=== PATIENT | male | born 1985 | race Caucasian/White ===

== ENCOUNTER 2017-12-25 20:56 | Emergency (ER) | payer BC ==
[2017-12-25] MEDS ORDERED: ONDANSETRON HCL IV 4 MG/2 ML VIAL IVP ONE (21:11)
[2017-12-25] MEDS ORDERED: 0.9 % SODIUM CHLORIDE 1000ML 1,000 ML IV ONE (21:11)
--- NOTE | 2017-12-25 21:16 | Emergency Department Record ---
History of Present Illness - General Chief complaint: ENT Stated complaint: DX STREEP, JUST NOT FEELING RIGHT SINCE TAKING MED Time Seen by Provider: 12/25/17 21:01 Source: Patient Mode of Arrival: Ambulatory Limitations: No limitations - History of Present Illness Initial comments: 32 yo male presents with multiple concerns. He was recently diagnosed with strep throat. He partially completed his course of antibiotics. He has not felt well since then. He has had some nausea, vomiting, diarrhea, and weakness. He feels dehydrated at this time. NO blood in the vomit or diarrhea. His throat discomfort is much improved. He works third shift [id number] and does not feel able to go in at this time. MD complaint: Sore throat -: Days(s) Severity: Moderate Consistency: Constant Improves with: Rest Worsens with: Eating, Other (The patient admits to chronic alcohol abuse. He states he continues to abuse alcohol. He does not want AA at this time. He is working with his PCP for his chronic misuse of alcohol.) Context- Ear: Recent illness Associated Symptoms: Sore throat - Related Data Home Medications Medication Instructions Recorded Confirmed Last Taken Gabapentin [Neurontin] 300 mg PO TID 12/25/17 12/25/17 Unknown Metoprolol Succinate [Toprol Xl] 50 mg PO DAILY 12/25/17 12/25/17 Unknown Sertraline HCl [Zoloft] 50 mg PO QHS 12/25/17 12/25/17 Unknown Trazodone HCl [Desyrel] 25 mg PO QHS 12/25/17 12/25/17 Unknown Previous Rx's Medication Instructions Recorded Ondansetron [Zofran Odt] 4 mg PO Q8H #15 tab.rapdis 12/25/17 Allergies Allergy/AdvReac Type Severity Reaction Status Date / Time No Known Drug Allergies Allergy Verified 12/25/17 21:10 Review of Systems Constitutional: Reports: Malaise, Weakness. Denies: Chills, Fever Eyes: Denies: Eye discharge, Eye pain ENT: Denies: Congestion, Throat pain Respiratory: Denies: Cough, Dyspnea, Hemoptysis, Stridor, Wheezes Cardiovascular: Denies: Chest pain, Palpitations, Syncope Endocrine: Reports: Fatigue Gastrointestinal: Reports: Diarrhea, Nausea, Vomiting. Denies: Abdominal pain, Constipation, Hematemesis, Hematochezia, Melena Genitourinary: Denies: Dysuria, Frequency, Hematuria Musculoskeletal: Denies: Arthralgia, Back pain, Joint swelling, Myalgia, Neck pain Skin: Denies: Bruising, Change in color, Rash Neurological: Denies: Headache, Numbness, Weakness Psychiatric: Denies: Anxiety Hematological/Lymphatic: Denies: Blood Clots, Easy bleeding, Easy bruising, Swollen glands Physical Exam - General General Appearance: Alert, Oriented x3, Cooperative, No acute distress Limitations: No limitations - Head Head exam: Normal inspection - Eye Eye exam: Normal appearance. negative: Conjunctival injection, Periorbital swelling, Scleral icterus - ENT ENT exam: Normal exam, Mucous membranes moist, Normal orophraynx. negative: Mucous membranes dry Ear exam: Normal external inspection Nasal Exam: Normal inspection. negative: Discharge Mouth exam: Normal external inspection Teeth exam: Normal inspection Throat exam: Normal inspection, Tonsillar erythema, Tonsillomegaly, Tonsillar exudate, R peritonsillar mass, L peritonsillar mass - Neck Neck exam: Normal inspection, Full ROM. negative: Lymphadenopathy, Tenderness - Respiratory Respiratory exam: Normal lung sounds bilaterally. negative: Accessory muscle use, Prolonged expiratory, Respiratory distress, Rhonchi, Stridor, Wheezes - Cardiovascular Cardiovascular Exam: Regular rate, Normal rhythm, Normal heart sounds - GI/Abdominal GI/Abdominal exam: Soft. negative: Tenderness - Rectal Rectal exam: Deferred - exam: Deferred - Extremities Extremities exam: Normal inspection, Full ROM, Normal capillary refill. negative: Pedal edema, Tenderness - Back Back exam: Reports: Normal inspection, Full ROM. Denies: Muscle spasm, Rash noted, Tenderness - Neurological Neurological exam: Alert, Oriented X3 - Psychiatric Psychiatric exam: Normal affect, Normal mood - Skin Skin exam: Dry, Intact, Normal color, Warm Course Vital Signs 12/25/17 21:04 Temperature 98.6 F Pulse Rate [ 98 H Pulse Ox Probe] Blood Pressure 160/110 [Left Arm] Pulse Ox 96 - Reevaluation(s) Reevaluation #1: The labs were reviewed The patient was informed of the elevated AST and ALT that are in a pattern consistent with alcohol abuse The INR is normal The glucose is 210 The patient reports he is feeling much better after the fluids. 12/25/17 22:13 12/25/17 22:30 We discussed the results and very close follow up with his PCP. He has an appointment on Monday. We discussed reasons to return to the ED prior to seeing his PCP He feels like he has support until then Medical Decision Making - Lab Data Result diagrams: 12/25/17 21:24 12/25/17 21:24 Disposition Disposition: Discharge Clinical Impression: Alcohol abuse Nausea and vomiting Qualifiers: Vomiting Intractability: unspecified Disposition: Home, Self-Care Condition: (1) Good Instructions: At-Risk Alcohol Use (ED), Acute Nausea and Vomiting (ED) Additional Instructions: Follow up with your doctor this week as scheduled on Monday Return to the ER if worse, vomiting or any concerns Avoid excessive alcohol You will need your liver and blood sugar tests recheck with your doctor Prescriptions: Ondansetron [Zofran Odt] 4 mg PO Q8H #15 tab.rapdis Forms: Patient Portal Access Time of Disposition: 22:31 Quality - Quality Measures Quality Measures: N/A - Blood Pressure Screening Does Patient Have Any of the Following: No Blood Pressure Classification: Hypertensive Reading Systolic Measurement: 164 Diastolic Measurement: 105 Screening for High Blood Pressure: < Pre-Hypertensive BP, F/U Documented > [ G8950] Pre-Hypertensive Follow-up Interventions: Referral to alternative/primary care provider.
[2017-12-25] MEDS ORDERED: MVI, ADULT NO.4 WITH VIT K 10 ML, THIAMINE HCL IV 100 MG in 0.9 % SODIUM CHLORIDE 1000M... IV SCH ×3 (21:30)
[2017-12-25 21:31] LABS: BASO % 1.3 % (0-6); GRAN % 58.6 % (47-80); HEMOGLOBIN 14.4 gm/dl (14.0-18.0); LYMPH % 22.4 % (16-45); MEAN CELL VOLUME 89.9 fl (81-97); MEAN CORPUSCULAR HEMOGLOBIN 31.6 pg (27-33); MEAN CORPUSCULAR HGB CONC 35.1 g/dl (32-36); MONO % 13.7 % (0-9); PLATELET COUNT 100 K/uL (130-400); RED BLOOD COUNT 4.56 M/uL (4.40-5.70); RED CELL DISTRIBUTION WIDTH 15.2 % (11.5-14.5); WHITE BLOOD COUNT W/O DIFF 4.5 K/uL (4.2-12.2)
[2017-12-25 21:42] LABS: BLOOD UREA NITROGEN 11 mg/dL (6-20); CREATININE 0.5 mg/dL (0.7-1.2); EST GLOMERULAR FILTRATION RATE > 60 mL/min
[2017-12-25 21:43] LABS: TOTAL PROTEIN 7.5 g/dL (6.6-8.7)
[2017-12-25 21:45] LABS: GLUCOSE,RANDOM 210 mg/dL (74-109)
[2017-12-25 21:48] LABS: ALBUMIN 4.6 g/dL (4.0-5.0); ALKALINE PHOSPHATASE 87 U/L (40-129); ALT/SGPT 252 U/L (<41); AST/SGOT 494 U/L (10.0-50.0); BILIRUBIN,DIRECT 0.3 mg/dL (0-0.3)
[2017-12-25 21:58] LABS: THYROID STIMULATING HORMONE 2.91 uIU/mL (0.270-4.20)
[2017-12-25 22:00] LABS: INR 0.9; PARTIAL THROMBOPLASTIN TIME 24.3 SECONDS (24.5-39.1); PROTHROMBIN TIME (PATIENT) 9.7 SECONDS (9.5-12.1)
[2017-12-25] MEDS ORDERED: ONDANSETRON 4 MG ODT TABLET SL ONE (22:35)
== END 2017-12-25 22:41 | disposition home or self-care (01) ==
LOC: ER 20:56
DX: F10.20 Alcohol dependence, uncomplicated (principal); R11.2 Nausea with vomiting, unspecified; J02.9 Acute pharyngitis, unspecified
CPT/HCPCS: 99284 ×2; 96374; 96375; 85025; 85730; 85610; 80076; 80048; 84443; J2405; J3411; J7030

== ENCOUNTER 2019-01-15 13:27 | Emergency (ER) | payer MEDICAID ==
[2019-01-15] MEDS ORDERED: SOD CHLOR 0.9% WITH KCL 40MEQ 40 MEQ/1,000 ML IV.SOLN IV ONE (13:32)
[2019-01-15] MEDS ORDERED: POTASSIUM CHLORIDE 20 MEQ TABLET PO ONE ×2 (13:32→17:45)
--- NOTE | 2019-01-15 13:37 | Emergency Department Record ---
History of Present Illness - General Chief Complaint: General Stated Complaint: LOW POTASSIUM Time Seen by Provider: 01/15/19 13:32 Source: Patient Mode of Arrival: Ambulatory Limitations: No limitations - History of Present Illness Initial comments: 33 yo male presents due outpatient labs that were preformed today demonstrated a K of 2.4. Dai Kumar ELECT[employer] ENGINEERING TECH[employer]OLOGIST called the patient and the ED directed the patient to the ED. The patient saw his PCP yesterday for cramps in his hands and feet. No palpitations or syncope. He has not had any return of the symptoms today. He admits to alcohol abuse that is treated by his doctor. He does not feel like he is in withdrawal at this moment. -: Days(s) (1) Location: Left, Right, Upper extremity, Lower extremity Quality: Other (cramps) Consistency: Now resolved Improves with: None Worsens with: None Associated Symptoms: Denies other symptoms - [place] Coma Scale Eye Response: (4) Open spontaneously Motor Response: (6) Obeys commands Verbal Response: (5) Oriented [place] Total: 15 - Related Data Previous Rx's Medication Instructions Recorded Ondansetron [Zofran Odt] 4 mg PO Q8H #15 tab.rapdis 12/25/17 Potassium Chloride [Klor-Con M20] 20 meq PO DAILY #5 tab.er.prt 01/15/19 Allergies Allergy/AdvReac Type Severity Reaction Status Date / Time No Known Drug Allergies Allergy Verified 12/25/17 21:10 Review of Systems Constitutional: Denies: Chills, Fever, Malaise, Weakness Eyes: Denies: Eye discharge, Eye pain, Photophobia, Vision change ENT: Denies: Congestion, Throat pain Respiratory: Denies: Cough, Dyspnea, Hemoptysis, Stridor, Wheezes Cardiovascular: Denies: Chest pain, Palpitations, Syncope Endocrine: Denies: Fatigue Gastrointestinal: Reports: Nausea, Vomiting. Denies: Abdominal pain, Constipation, Diarrhea Genitourinary: Denies: Dysuria, Frequency Musculoskeletal: Reports: Myalgia. Denies: Arthralgia, Back pain, Neck pain Skin: Denies: Bruising, Change in color, Rash Neurological: Denies: Abnormal gait, Headache, Numbness, Tingling, Tremors, Vertigo, Weakness Psychiatric: Reports: Anxiety Hematological/Lymphatic: Denies: Easy bleeding, Easy bruising Past Medical History - SOCIAL HISTORY Smoking Status: Current every day smoker Drug Use: None - RESPIRATORY Hx Respiratory Disorders: No - CARDIOVASCULAR Hx Cardio Disorders: Yes Hx Hypertension: Yes Hx Irregular Heartbeat: Yes - NEURO Hx Neuro Disorders: Yes Hx Seizures: Yes (r/t alcohol withdrawl) - GI Hx GI Disorders: No - Hx Genitourinary Disorders: No - ENDOCRINE Hx Endocrine Disorders: No - MUSCULOSKELETAL Hx Musculoskeletal Disorders: No - PSYCH Hx Psych Problems: Yes Hx Anxiety: Yes Hx Depression: Yes Comment:: alcholism - HEMATOLOGY/ONCOLOGY Hx Hematology/Oncology Disorders: No Family Medical History Hx Alcohol Use: Father Hx Cancer: Mother Physical Exam - General General Appearance: Alert, Oriented x3, Cooperative, No acute distress Limitations: No limitations - Head Head exam: Atraumatic, Normocephalic, Normal inspection - Eye Eye exam: Normal appearance, PERRL. negative: Conjunctival injection, Scleral icterus - ENT ENT exam: Normal exam, Mucous membranes moist Ear exam: Normal external inspection Nasal Exam: Normal inspection Mouth exam: Normal external inspection Teeth exam: Normal inspection Throat exam: Normal inspection - Neck Neck exam: Normal inspection - Respiratory Respiratory exam: Normal lung sounds bilaterally. negative: Respiratory distress - Cardiovascular Cardiovascular Exam: Regular rate, Normal rhythm, Normal heart sounds Peripheral Pulses: 2+: Radial (R), Radial (L) - GI/Abdominal GI/Abdominal exam: Soft. negative: Tenderness - Rectal Rectal exam: Deferred - exam: Deferred - Extremities Extremities exam: Normal inspection, Full ROM, Normal capillary refill. negative: Calf tenderness, Joint swelling, Pedal edema, Tenderness - Back Back exam: Denies: CVA tenderness (R), CVA tenderness (L) - Neurological Neurological exam: Alert, Oriented X3 - Psychiatric Psychiatric exam: Normal affect, Normal mood. negative: Agitated, Anxious - Skin Skin exam: Dry, Intact, Normal color, Warm Course - Reevaluation(s) Reevaluation #1: The labs were reviewed The K is 2.6 The magnesium is 1.7 NSR on the monitor without ectopy 01/15/19 14:25 01/15/19 15:04 The patient is relaxed without complaints He does not feel like he is in withdrawal. He has support through his PCP for the alcohol abuse and anxiety He declined the need for any medication for w/d at this time 01/15/19 15:59 The patient is doing well. No complaints. He ate lunch. HR 75. BP 134/83 IV infusing. 01/15/19 17:44 The K has improved to 3.3 We discussed K rich food sources and I will have him take one more dose tonight He is to call his PCP to recheck his labs in 1-2 days and sooner if any cramps Medical Decision Making - Lab Data Result diagrams: 01/15/19 13:40 01/15/19 17:20 Disposition Disposition: Discharge Clinical Impression: Hypokalemia Disposition: Home, Self-Care Condition: (1) Good Instructions: Hypokalemia (ED) Additional Instructions: Call your doctor for the next available follow up appointment to recheck your labs this week Eat potassium rich foods like we discussed in the ER Return to the ER for a recheck if worse, any new concerns or questions Take the potassium prior to bedtime tonight Take a dose in the morning of the potassium until your doctor rechecks your labs Review this ER visit and the tests performed with your family doctor Prescriptions: Potassium Chloride [Klor-Con M20] 20 meq PO DAILY #5 tab.er.prt Forms: Patient Portal Access Time of Disposition: 17:46 Quality - Quality Measures Quality Measures: N/A - Blood Pressure Screening Does Patient Have Any of the Following: No Blood Pressure Classification: Pre-Hypertensive BP Reading Systolic Measurement: 126 Diastolic Measurement: 67 Screening for High Blood Pressure: < Pre-Hypertensive BP, F/U Documented > [ G8950] Pre-Hypertensive Follow-up Interventions: Referral to alternative/primary care provider.
[2019-01-15 13:45] LABS: BASO % 0.3 % (0-6); EOS % 0.8 % (0-6); GRAN % 73.6 % (47-80); HEMATOCRIT 37.9 % (42.0-52.0); HEMOGLOBIN 13.4 gm/dl (14.0-18.0); MEAN CELL VOLUME 91.1 fl (81-97); MEAN CORPUSCULAR HEMOGLOBIN 32.2 pg (27-33); MEAN CORPUSCULAR HGB CONC 35.4 g/dl (32-36); MEAN PLATELET VOLUME 12.1 fl (7.4-10.4); MONO % 14.3 % (0-9); PLATELET COUNT 95 K/uL (130-400); RED BLOOD COUNT 4.16 M/uL (4.40-5.70); RED CELL DISTRIBUTION WIDTH 12.8 % (11.5-14.5); WHITE BLOOD COUNT W/O DIFF 9.3 K/uL (4.2-12.2)
[2019-01-15 13:57] LABS: BLOOD UREA NITROGEN 18 mg/dL (6-20); CREATININE 0.9 mg/dL (0.7-1.2); EST GLOMERULAR FILTRATION RATE > 60 mL/min
[2019-01-15 14:00] LABS: GLUCOSE,RANDOM 92 mg/dL (74-109)
[2019-01-15] MEDS ORDERED: MAGNESIUM OXIDE 400 MG TABLET PO ONE (14:24)
[2019-01-15 17:36] LABS: BLOOD UREA NITROGEN 15 mg/dL (6-20); CREATININE 0.8 mg/dL (0.7-1.2); EST GLOMERULAR FILTRATION RATE > 60 mL/min
[2019-01-15 17:39] LABS: GLUCOSE,RANDOM 128 mg/dL (74-109)
== END 2019-01-15 18:01 | disposition home or self-care (01) ==
LOC: ER 13:27
DX: E87.6 Hypokalemia (principal); R25.2 Cramp and spasm; I10 Essential (primary) hypertension; F17.210 Nicotine dependence, cigarettes, uncomplicated; F10.10 Alcohol abuse, uncomplicated
CPT/HCPCS: 80048; 83735; 85025; 96365; 96366; 99284

== ENCOUNTER 2019-02-18 16:01 | Observation (INO) | payer MEDICAID ==
[2019-02-18] MEDS ORDERED: LORAZEPAM 2 MG/ML VIAL IV ONE ×2 (16:37→17:18)
[2019-02-18 16:46] LABS: ABSOLUTE NEUTROPHIL COUNT 3.17; BASO % 1.3 % (0-6); EOS % 0.9 % (0-6); GRAN % 67.5 % (47-80); HEMATOCRIT 38.4 % (42.0-52.0); LYMPH % 17.7 % (16-45); MEAN CELL VOLUME 95.3 fl (81-97); MEAN CORPUSCULAR HGB CONC 33.9 g/dl (32-36); MONO % 12.6 % (0-9); PLATELET COUNT 75 K/uL (130-400); RED BLOOD COUNT 4.03 M/uL (4.40-5.70); RED CELL DISTRIBUTION WIDTH 13.2 % (11.5-14.5); WHITE BLOOD COUNT W/O DIFF 4.7 K/uL (4.2-12.2)
[2019-02-18 16:47] LABS: MEAN CORPUSCULAR HEMOGLOBIN 32.2 pg (27-33)
--- NOTE | 2019-02-18 16:50 | Emergency Department Record ---
History of Present Illness - General Chief Complaint: Tremor Stated Complaint: BELIEVES LOW POTASSIUM Time Seen by Provider: 02/18/19 16:33 Source: Patient, Family Mode of Arrival: Ambulatory Limitations: No limitations - History of Present Illness Initial comments: The patient is here due to a 2 hour hx of tremors and shaking of his arms and legs. He did stop drinking 3 days ago and believes he is in alcohol withdrawal. The patient also feels his potassium may be low due to having similar symptoms due to that issue in the past. The patient is a heavy drinker and has been drinking about a fifth of alcohol a day for the last 4 months. He denies any CP, SOB, AP or CORDOVA. The patient did vomit once this AM. Onset/Timin -: Hour(s) - [place] Coma Scale Eye Response: (4) Open spontaneously Motor Response: (6) Obeys commands Verbal Response: (5) Oriented [place] Total: 15 - Related Data Allergies Allergy/AdvReac Type Severity Reaction Status Date / Time No Known Drug Allergies Allergy Verified 12/25/17 21:10 Travel Screening - Travel/Exposure Within Last 30 Days Have you traveled within the last 30 days?: No Review of Systems Constitutional: Denies: Chills, Fever Eyes: Denies: Eye discharge ENT: Denies: Congestion Respiratory: Denies: Cough, Dyspnea Cardiovascular: Denies: Arrhythmia, Chest pain Endocrine: Denies: Fatigue Gastrointestinal: Denies: Nausea Genitourinary: Denies: Dysuria Musculoskeletal: Denies: Arthralgia Skin: Denies: Bruising Past Medical History - SOCIAL HISTORY Smoking Status: Current every day smoker Alcohol Use: Heavy Alcohol Use Comment: fifth per day Drug Use: None - RESPIRATORY Hx Respiratory Disorders: No - CARDIOVASCULAR Hx Cardio Disorders: Yes Hx Hypertension: Yes Hx Irregular Heartbeat: Yes (tachycardia) - NEURO Hx Neuro Disorders: Yes Hx Seizures: Yes (r/t alcohol withdrawl) - GI Hx GI Disorders: Yes Hx Liver Disease: Yes - Hx Genitourinary Disorders: No - ENDOCRINE Hx Endocrine Disorders: No - MUSCULOSKELETAL Hx Musculoskeletal Disorders: No - PSYCH Hx Psych Problems: Yes Hx Anxiety: Yes Hx Depression: Yes Comment:: alcholism - HEMATOLOGY/ONCOLOGY Hx Hematology/Oncology Disorders: No Family Medical History Any Significant Family History?: Yes Hx Alcohol Use: Father Hx Cancer: Mother Physical Exam - General General Appearance: Alert, Oriented x3, Cooperative, No acute distress - Head Head exam: Atraumatic, Normocephalic, Normal inspection - Eye Eye exam: Normal appearance, PERRL, EOMI - ENT Throat exam: Normal inspection. negative: Tonsillar erythema, Tonsillar exudate - Neck Neck exam: Normal inspection, Full ROM. negative: Tenderness - Respiratory Respiratory exam: Normal lung sounds bilaterally. negative: Respiratory distress - Cardiovascular Cardiovascular Exam: Regular rate, Normal rhythm, Normal heart sounds - GI/Abdominal GI/Abdominal exam: Soft, Normal bowel sounds. negative: Tenderness - Extremities Extremities exam: Normal inspection, Full ROM, Normal capillary refill. negative: Tenderness - Neurological Neurological exam: Alert, Normal gait, Other (The patient does have tremors to his arms bilaterally.). negative: Abnormal gait, Motor sensory deficit Course Vital Signs 02/18/19 02/18/19 16:19 16:28 Temperature 98.7 F Pulse Rate 90 Respiratory 20 Rate Blood Pressure 116/106 Pulse Ox 97 - Reevaluation(s) Reevaluation #1: I did discuss the issues with the patient and did recommend inpatient treatment due to the extent of his tremors, vomiting, and withdrawal and the patient did agree. I then did discuss the case with Gregoria Bautista (AD OPERATIONS INTERN) and she does accept the admission for Dr. Calvin. 02/18/19 17:33 Medical Decision Making - Data Complexity MDM Data: Labs Ordered and/or Reviewed, EKG Ordered and/or Reviewed - Lab Data Result diagrams: 02/18/19 16:15 02/18/19 16:15 Lab Results 02/18/19 Range/Units 16:15 WBC 4.7 (4.2-12.2) K/uL RBC 4.03 L (4.40-5.70) M/uL Hgb 13.0 L (14.0-18.0) gm/dl Hct 38.4 L (42.0-52.0) % MCV 95.3 (81-97) fl MCH 32.2 (27-33) pg MCHC 33.9 (32-36) g/dl RDW 13.2 (11.5-14.5) % Plt Count 75 L (130-400) K/uL MPV 12.0 H (7.4-10.4) fl Gran % 67.5 (47-80) % Lymphocytes % 17.7 (16-45) % Monocytes % 12.6 H (0-9) % Eosinophils % 0.9 (0-6) % Basophils % 1.3 (0-6) % Absolute Neutrophils 3.17 - EKG Data -: EKG Interpreted by Me EKG: Abnormal EKG (LVH with repolarization abnormalities.) Disposition Disposition: Admit Clinical Impression: Alcohol withdrawal Qualifiers: Complication of substance-induced condition: uncomplicated Qualified Code(s): F10.230 - Alcohol dependence with withdrawal, uncomplicated Disposition: Still a Patient at [facility] Decision to Admit: Admit from ER Decision to Admit Date: 02/18/19 Decision to Admit Time: 17:34 Accepting Physician: Andreia Time Discussed w/Accepting Physician: 17:34 Condition: (2) Stable Forms: Patient Portal Access Time of Disposition: 17:34 Quality - Quality Measures Quality Measures: N/A - Blood Pressure Screening View Details: Yes Does Patient Have Any of the Following: No Blood Pressure Classification: Hypertensive Reading Systolic Measurement: 116 Diastolic Measurement: 106 Screening for High Blood Pressure: < First Hypertensive BP, F/U Documented > [G8950] First Hypertensive Follow-up Interventions: Referral to alternative/primary care provider.
[2019-02-18 16:58] LABS: BLOOD UREA NITROGEN 5 mg/dL (6-20); CREATININE 0.6 mg/dL (0.7-1.2); EST GLOMERULAR FILTRATION RATE > 60 mL/min
[2019-02-18 17:01] LABS: GLUCOSE,RANDOM 117 mg/dL (74-109); PARTIAL THROMBOPLASTIN TIME 22.4 SECONDS (24.5-39.1); PROTHROMBIN TIME (PATIENT) 10.5 SECONDS (9.5-12.1)
[2019-02-18 17:03] LABS: ALB/GLOB RATIO 1.8 (1.1-1.8); ALBUMIN 5.1 g/dL (4.0-5.0); ALKALINE PHOSPHATASE 104 U/L (40-129); ALT/SGPT 217 U/L (<41); AST/SGOT 508 U/L (10.0-50.0); CREATINE PHOSPHOKINASE 194 U/L (39-308)
[2019-02-18 17:06] LABS: CKMB 1.5 ng/mL (<6.73)
[2019-02-18 17:14] LABS: THYROID STIMULATING HORMONE 2.88 uIU/mL (0.270-4.20)
[2019-02-18] MEDS ORDERED: POTASSIUM CHLORIDE 20 MEQ TABLET PO ONE (17:22)
[2019-02-18] MEDS ORDERED: 0.9 % SODIUM CHLORIDE 1,000 ML BAG IV ONE (17:26)
[2019-02-18] MEDS: MVI, ADULT NO.4 WITH VIT K 10 ML, THIAMINE HCL IV 100 MG in 0.9 % SODIUM CHLORIDE 1000M... IV SCH ×6 (17:33→21:31)
[2019-02-18] MEDS ORDERED: LORAZEPAM 2 MG/ML VIAL IV PRN ×4 (18:15→21:16)
[2019-02-18] MEDS ORDERED: 0.9 % SODIUM CHLORIDE 1000ML 1,000 ML IV PRN (18:15)
[2019-02-18] MEDS ORDERED: ONDANSETRON HCL IV 4 MG/2 ML VIAL IVP PRN (18:15)
[2019-02-18] MEDS ORDERED: LORAZEPAM 2 MG/ML VIAL IM PRN (20:57)
[2019-02-18] MEDS ORDERED: DIAZEPAM 5 MG TABLET PO PRN (20:57)
[2019-02-18] MEDS: CHLORDIAZEPOXIDE 25 MG CAPSULE PO SCH (21:32)
[2019-02-18] MEDS: POTASSIUM CHL 20MEQ IN 1L NS 20 MEQ/1,000 ML BAG IV SCH (21:33)
[2019-02-18] MEDS: THIAMINE MONONITRATE 100 MG TABLET PO SCH (21:38)
[2019-02-18] MEDS ORDERED: MAGNESIUM SULFATE 16 MEQ in 0.9 % SODIUM CHLORIDE 100ML 100 ML IV ONE ×2 (21:43→22:00)
[2019-02-19] MEDS ORDERED: MAGNESIUM SULFATE 16 MEQ in 0.9 % SODIUM CHLORIDE 100ML 100 ML IV ONE ×2 (00:01→03:00)
[2019-02-19] MEDS: MVI, ADULT NO.4 WITH VIT K 10 ML, THIAMINE HCL IV 100 MG in 0.9 % SODIUM CHLORIDE 1000M... IV SCH ×3 (02:20)
[2019-02-19 06:42] LABS: ABSOLUTE NEUTROPHIL COUNT 2.23; BASO % 0.8 % (0-6); EOS % 3.8 % (0-6); GRAN % 57.2 % (47-80); HEMOGLOBIN 10.7 gm/dl (14.0-18.0); LYMPH % 23.8 % (16-45); MEAN CELL VOLUME 97.3 fl (81-97); MEAN CORPUSCULAR HEMOGLOBIN 31.5 pg (27-33); MEAN CORPUSCULAR HGB CONC 32.4 g/dl (32-36); MEAN PLATELET VOLUME 11.8 fl (7.4-10.4); MONO % 14.4 % (0-9); PLATELET COUNT 52 K/uL (130-400); RED BLOOD COUNT 3.39 M/uL (4.40-5.70); RED CELL DISTRIBUTION WIDTH 13.3 % (11.5-14.5); WHITE BLOOD COUNT W/O DIFF 3.9 K/uL (4.2-12.2)
[2019-02-19 06:54] LABS: ALB/GLOB RATIO 2.1 (1.1-1.8); ALBUMIN 4.2 g/dL (4.0-5.0); ALKALINE PHOSPHATASE 89 U/L (40-129); ALT/SGPT 188 U/L (<41); AST/SGOT 487 U/L (10.0-50.0); BLOOD UREA NITROGEN 4 mg/dL (6-20); CREATININE 0.5 mg/dL (0.7-1.2); EST GLOMERULAR FILTRATION RATE > 60 mL/min; GLUCOSE,RANDOM 94 mg/dL (74-109); TOTAL PROTEIN 6.2 g/dL (6.6-8.7)
[2019-02-19] MEDS: POTASSIUM CHL 20MEQ IN 1L NS 20 MEQ/1,000 ML BAG IV SCH (07:23)
[2019-02-19] MEDS ORDERED: 0.9 % SODIUM CHLORIDE 1000ML 1,000 ML IV SCH (09:15)
[2019-02-19] MEDS: THIAMINE MONONITRATE 100 MG TABLET PO SCH (09:58)
[2019-02-19] MEDS ORDERED: METOPROLOL SUCC 50 MG TABLET PO SCH (10:00)
[2019-02-19] MEDS ORDERED: MULTIVITAMINS/MINERALS TABLET PO SCH (10:00)
[2019-02-19] MEDS ORDERED: CYANOCOBALAMIN (VITAMIN B-12) 100 MCG TABLET PO SCH (10:00)
[2019-02-19] MEDS ORDERED: POTASSIUM CHLORIDE 20 MEQ TABLET PO SCH (10:00)
[2019-02-19] MEDS ORDERED: FOLIC ACID 1 MG TABLET PO SCH (10:00)
[2019-02-19] MEDS: CHLORDIAZEPOXIDE 25 MG CAPSULE PO SCH (10:01)
--- NOTE | 2019-02-19 11:20 | History & Physical ---
History of Present Illness - Date of Service Date of Service for History & Physical: 02/19/19 - History of Present Illness Admitting Diagnosis: 1. Acute Alcohol Withdrawal with Hypokalemia History of Present Illness: Mr. Mathis is a 33 year-old male who presented to the ED on 02/18/19 with c/o 2 hour hx of tremors and shaking of his arms and legs. He did stop drinking 3 days prior and believes he is in alcohol withdrawal. The patient also felt his potassium may be low due to having similar symptoms due to that issue in the past (2-3 months ago). The patient is a heavy drinker and has been drinking about a fifth of alcohol a day for the last 4 months. He denies any CP, SOB, AP or CORDOVA. The patient did vomit once prior to arrival that morning. Health history includes: every day smoker, ETOH abuse, seizures with alcohol abuse, tachycardia, HTN, anxiety, depression. In the ED, vital signs were within normal limits, K was 3.1, chloride 86, BUN 5, creat 0.6, mag <1.0. EKG demonstrated LVH with repolarization abnormalities. He was admitted for inpatient treatment due to the extent of his tremors, vomiting, and withdrawal and the patient did agree. 02/19/19: Pt. is resting in bed. He met with Di () this morning for his previously scheduled appointment. He reports that he does have an appt with his PCP at 1pm today that he would like to go to. Vitals remain stable. K increased to 4.2, chloride increased to 101, BUN 4, creat 0.5, mag increased to 2.7 (was replaced with 6gm). CIWA scale has remained less than 5, he is tolerating librium well. Pt. reported that he has been admitted to inpatient rehab for ETOH treatment in the past, and his PCP has prescribed libruim in the past. PCP: Dr. Kumar Travel Screening - Travel/Exposure Within Last 30 Days Have you traveled within the last 30 days?: No - Travel/Exposure Within Last Year Have you traveled outside the [place] in the last year?: No - Additonal Travel Details Have you been exposed to anyone with a communicable illness?: No - Travel Symptoms Symptom Screening: None Review of Systems Constitutional: Denies: Chills, Fever Eyes: Denies: Eye discharge ENT: Denies: Congestion Respiratory: Denies: Cough, Dyspnea Cardiovascular: Denies: Arrhythmia, Chest pain Endocrine: Denies: Fatigue Gastrointestinal: Denies: Nausea Genitourinary: Denies: Dysuria Musculoskeletal: Denies: Arthralgia Skin: Denies: Bruising Neurological: Reports: Tremors Past Medical History - SOCIAL HISTORY Smoking Status: Current every day smoker Alcohol Use: Heavy Drug Use: None - RESPIRATORY Hx Respiratory Disorders: No - CARDIOVASCULAR Hx Cardio Disorders: Yes Hx Hypertension: Yes Hx Irregular Heartbeat: Yes (tachycardia) - NEURO Hx Neuro Disorders: Yes Hx Seizures: No - GI Hx GI Disorders: Yes Hx Liver Disease: Yes - Hx Genitourinary Disorders: No - ENDOCRINE Hx Endocrine Disorders: No - MUSCULOSKELETAL Hx Musculoskeletal Disorders: No - PSYCH Hx Psych Problems: Yes Hx Anxiety: Yes Hx Depression: Yes Comment:: alcholism - HEMATOLOGY/ONCOLOGY Hx Hematology/Oncology Disorders: No Family Medical History Any Significant Family History?: Yes Hx Alcohol Use: Father Hx Cancer: Mother H&P Meds/Allergies - Allergies Allergies: Allergies Allergy/AdvReac Type Severity Reaction Status Date / Time No Known Drug Allergies Allergy Verified 12/25/17 21:10 - Active Medications Active Medications: Current Medications Chlordiazepoxide HCl (Librium) 25 mg PO TID [facility] Last Admin: 02/19/19 10:01 Dose: 25 mg Documented by: Cyanocobalamin (Vitamin B-12) 100 mcg PO DAILY [facility] Stop: 02/22/19 10:01 Last Admin: 02/19/19 10:02 Dose: 100 mcg Documented by: Diazepam (Valium) 5 - 10 mg PO .Q1-2H PRN PRN Reason: ALCOHOL WITHDRAWAL Folic Acid () 1 mg PO DAILY [facility] Stop: 02/22/19 10:01 Last Admin: 02/19/19 09:58 Dose: 1 mg Documented by: Sodium Chloride () 1,000 mls @ 100 mls/hr IV .Q10H [facility] Lorazepam (Ativan) 1 - 2 mg IV .Q1-2H PRN PRN Reason: ALCOHOL WITHDRAWAL Last Admin: 02/19/19 10:08 Dose: 1 mg Documented by: Lorazepam (Ativan) 2 mg IM NOW PRN PRN Reason: SEIZURE Lorazepam (Ativan) 2 mg IV NOW PRN PRN Reason: SEIZURE Lorazepam (Ativan) 1 mg IV Q4H PRN PRN Reason: ALCOHOL WITHDRAWAL Last Admin: 02/19/19 02:41 Dose: 1 mg Documented by: Metoprolol Succinate (Toprol Xl) 100 mg PO DAILY [facility] Last Admin: 02/19/19 09:59 Dose: 100 mg Documented by: Multivitamins/Minerals (Centrum) 1 tab PO DAILY [facility] Last Admin: 02/19/19 10:01 Dose: 1 tab Documented by: Ondansetron HCl (Zofran) 4 mg IVP Q4H PRN PRN Reason: NAUSEA Physical Exam - Vital Signs Vital Signs: Vital Signs - Last 24 Hrs Temp Pulse Pulse Pulse Resp BP BP 02/19/19 08:14 16 02/19/19 07:28 98.1 F 63 18 134/83 02/19/19 04:00 97.9 F 57 L 18 127/80 02/19/19 00:15 98.1 F 71 18 121/73 02/18/19 21:00 83 02/18/19 20:15 98.3 F 84 20 113/67 02/18/19 18:36 20 02/18/19 18:15 98.1 F 80 18 140/85 02/18/19 18:12 83 20 125/87 02/18/19 17:02 75 18 134/93 02/18/19 16:28 02/18/19 16:19 98.7 F 90 20 116/106 Pulse Ox 02/19/19 08:14 02/19/19 07:28 98 02/19/19 04:00 98 02/19/19 00:15 97 02/18/19 21:00 02/18/19 20:15 99 02/18/19 18:36 02/18/19 18:15 100 02/18/19 18:12 98 02/18/19 17:02 97 02/18/19 16:28 97 02/18/19 16:19 - General General Appearance: Alert, Oriented x3, Cooperative, No acute distress Limitations: No limitations - Head Head exam: Atraumatic, Normocephalic, Normal inspection - Eye Eye exam: Normal appearance, PERRL, EOMI - ENT Throat exam: Normal inspection. negative: Tonsillar erythema, Tonsillar exudate - Neck Neck exam: Normal inspection, Full ROM. negative: Tenderness - Respiratory Respiratory exam: Normal lung sounds bilaterally. negative: Respiratory distress - Cardiovascular Cardiovascular Exam: Regular rate, Normal rhythm, Normal heart sounds - GI/Abdominal GI/Abdominal exam: Soft, Normal bowel sounds. negative: Tenderness - Extremities Extremities exam: Normal inspection, Full ROM, Normal capillary refill. negative: Tenderness - Neurological Neurological exam: Alert, Normal gait, Other (The patient does have tremors to his arms bilaterally.). negative: Abnormal gait, Motor sensory deficit Results - Labs Result Diagrams: 02/19/19 06:19 02/19/19 06:19 Labs Last 24 Hours: Laboratory Results - last 24 hr 02/18/19 02/18/19 02/18/19 16:15 16:15 16:15 WBC 4.7 RBC 4.03 L Hgb 13.0 L Hct 38.4 L MCV 95.3 MCH 32.2 MCHC 33.9 RDW 13.2 Plt Count 75 L MPV 12.0 H Gran % 67.5 Lymphocytes % 17.7 Monocytes % 12.6 H Eosinophils % 0.9 Basophils % 1.3 Absolute Neutrophils 3.17 PT 10.5 INR 1.0 APTT 22.4 L Sodium 139 Potassium 3.1 L Chloride 86 L Carbon Dioxide 22.0 Anion Gap 31.0 H BUN 5 L Creatinine 0.6 L Estimated GFR > 60 Random Glucose 117 H Calcium 10.0 Magnesium Total Bilirubin 1.20 H AST 508 H ALT 217 H Alkaline Phosphatase 104 Creatine Kinase 194 CK-MB (CK-2) 1.5 Troponin T < 0.010 Total Protein 8.0 Albumin 5.1 H Globulin 2.9 Albumin/Globulin Ratio 1.8 TSH 2.88 Ethyl Alcohol 02/18/19 02/18/19 02/19/19 16:15 16:15 06:00 WBC RBC Hgb Hct MCV MCH MCHC RDW Plt Count MPV Gran % Lymphocytes % Monocytes % Eosinophils % Basophils % Absolute Neutrophils PT INR APTT Sodium Potassium Chloride Carbon Dioxide Anion Gap BUN Creatinine Estimated GFR Random Glucose Calcium Magnesium < 1.0 L* Cancelled Total Bilirubin AST ALT Alkaline Phosphatase Creatine Kinase CK-MB (CK-2) Troponin T Total Protein Albumin Globulin Albumin/Globulin Ratio TSH Ethyl Alcohol 0.010 02/19/19 02/19/19 06:19 06:19 WBC 3.9 L RBC 3.39 L Hgb 10.7 L Hct 33.0 L MCV 97.3 H MCH 31.5 MCHC 32.4 RDW 13.3 Plt Count 52 L MPV 11.8 H Gran % 57.2 Lymphocytes % 23.8 Monocytes % 14.4 H Eosinophils % 3.8 Basophils % 0.8 Absolute Neutrophils 2.23 PT INR APTT Sodium 138 Potassium 4.2 Chloride 101 Carbon Dioxide 27.0 Anion Gap 10.0 BUN 4 L Creatinine 0.5 L Estimated GFR > 60 Random Glucose 94 Calcium 8.5 L Magnesium 2.7 H Total Bilirubin 1.30 H AST 487 H ALT 188 H Alkaline Phosphatase 89 Creatine Kinase CK-MB (CK-2) Troponin T Total Protein 6.2 L Albumin 4.2 Globulin 2.0 Albumin/Globulin Ratio 2.1 H TSH Ethyl Alcohol VTE H&P Assessment - Risk for VTE Risk for VTE: Yes Risk Level: Very Low Risk Assessment Date: 02/19/19 Risk Assessment Time: 11:22 VTE Orders Placed or Will Be Placed: No VTE Reason for No Prophylaxis: Not Indicated (mobility not impaired) Plan - Inpatient Certification Inpatient Certification: Admit to inpatient care: Based on my medical assessment, after consideration of patient's risk factors (age, co-morbidities and patient presenting symptoms and acuity), I expect that this patient will remain in the hospital greater than or equal to two midnights and that the services needed warrant inpatient care because: Patient Risk Factors: [] Estimated length of stay: [] The patient may reasonably be expected to be discharged or transferred to a hospital within 96 hours after admission to [facility]. Services needed: [] Post hospital care (if known): [] I certify that my determination is in accordance with my understanding of Medicare requirements for reasonable and necessary inpatient services. - Detailed Diagnosis and Plan (1) Alcohol withdrawal Current Visit: Yes Status: Acute Qualifiers: Complication of substance-induced condition: uncomplicated Qualified Code(s): F10.230 - Alcohol dependence with withdrawal, uncomplicated Base Code: F10.239 - ALCOHOL DEPENDENCE WITH WITHDRAWAL, UNSPECIFIED Comment: 02/19/19: -Hx of ETOH abuse, pt drinks 1 pint of alcohol/day over last 4-5 mo. -librium 25mg tid -CIWA scales (last reported value was 5) (2) Hypomagnesemia Current Visit: Yes Status: Acute Base Code: E83.42 - HYPOMAGNESEMIA Comment: 02/19/19: -Mag on admission was <1, repeat was 2.7 (replaced with 6gm) -NSR on tele (3) Hypokalemia Current Visit: No Status: Acute Base Code: E87.6 - HYPOKALEMIA Comment: 02/19/19: -K on admission was 3.1, repeat this am was 4.2 -NSR on tele (4) At risk for deep venous thrombosis Current Visit: Yes Status: Acute Base Code: Z91.89 - [facility] PERSONAL RISK FACTO RS, NOT ELSEWHERE CLASSIFIED Comment: 02/19/19: -Mobility not impaired (5) Full code status Current Visit: Yes Status: Acute Base Code: Z78.9 - OTHER SPECIFIED HEALTH STATUS Comment: 02/19/19: -Pt. is a full code
--- NOTE | 2019-02-19 11:36 | Discharge Summary ---
Providers Discharge Summary Date: 02/19/19 Date of admission: 02/18/19 18:09 Expected Date of Discharge: 02/19/19 Attending physician: BALDOMERO WALKER Primary care physician: FILIPPO KUMAR Consults: Consult Orders 02/18/19 20:57 Consult - Case Management Now Comment: Reason For Exam: Alcohol Withdrawal Physical Exam - Vital Signs Vital Signs: Vital Signs - Last 24 Hrs Temp Pulse Pulse Pulse Resp BP BP 02/19/19 08:14 16 02/19/19 07:28 98.1 F 63 18 134/83 02/19/19 04:00 97.9 F 57 L 18 127/80 02/19/19 00:15 98.1 F 71 18 121/73 02/18/19 21:00 83 02/18/19 20:15 98.3 F 84 20 113/67 02/18/19 18:36 20 02/18/19 18:15 98.1 F 80 18 140/85 02/18/19 18:12 83 20 125/87 02/18/19 17:02 75 18 134/93 02/18/19 16:28 02/18/19 16:19 98.7 F 90 20 116/106 Pulse Ox 02/19/19 08:14 02/19/19 07:28 98 02/19/19 04:00 98 02/19/19 00:15 97 02/18/19 21:00 02/18/19 20:15 99 02/18/19 18:36 02/18/19 18:15 100 02/18/19 18:12 98 02/18/19 17:02 97 02/18/19 16:28 97 02/18/19 16:19 - General General Appearance: Alert, Oriented x3, Cooperative, No acute distress Limitations: No limitations - Head Head exam: Atraumatic, Normocephalic, Normal inspection - Eye Eye exam: Normal appearance, PERRL, EOMI - ENT Throat exam: Normal inspection. negative: Tonsillar erythema, Tonsillar exudate - Neck Neck exam: Normal inspection, Full ROM. negative: Tenderness - Respiratory Respiratory exam: Normal lung sounds bilaterally. negative: Respiratory distress - Cardiovascular Cardiovascular Exam: Regular rate, Normal rhythm, Normal heart sounds - GI/Abdominal GI/Abdominal exam: Soft, Normal bowel sounds. negative: Tenderness - Extremities Extremities exam: Normal inspection, Full ROM, Normal capillary refill. negative: Tenderness - Neurological Neurological exam: Alert, Normal gait, Other (The patient does have tremors to his arms bilaterally.). negative: Abnormal gait, Motor sensory deficit Hospitalization - Hospitalization Admission Diagnosis: 1. Acute Alcohol Withdrawal with Hypokalemia - Problem List/Discharge Diagnosis (1) Alcohol withdrawal Current Visit: Yes Status: Acute Discharge Diagnosis: Complication of substance-induced condition: uncomplicated Qualified Code(s): F10.230 - Alcohol dependence with withdrawal, uncomplicated Base Code: F10.239 - ALCOHOL DEPENDENCE WITH WITHDRAWAL, UNSPECIFIED Comment: 02/19/19: -Hx of ETOH abuse, pt drinks 1 pint of alcohol/day over last 4-5 mo. -librium 25mg tid -CIWA scales (last reported value was 5) (2) Hypomagnesemia Current Visit: Yes Status: Acute Base Code: E83.42 - HYPOMAGNESEMIA Comment: 02/19/19: -Mag on admission was <1, repeat was 2.7 (replaced with 6gm) -NSR on tele (3) Hypokalemia Current Visit: No Status: Acute Base Code: E87.6 - HYPOKALEMIA Comment: 02/19/19: -K on admission was 3.1, repeat this am was 4.2 -NSR on tele (4) At risk for deep venous thrombosis Current Visit: Yes Status: Acute Base Code: Z91.89 - [facility] PERSONAL RISK FACTORS, NOT ELSEWHERE CLASSIFIED Comment: 02/19/19: -Mobility not impaired (5) Full code status Current Visit: Yes Status: Acute Base Code: Z78.9 - OTHER SPECIFIED HEALTH STATUS Comment: 02/19/19: -Pt. is a full code - Hospitalization Course Disposition: Home, Self-Care Hospital Course: Mr. Mathis is a 33 year-old male who presented to the ED on 02/18/19 with c/o 2 hour hx of tremors and shaking of his arms and legs. He did stop drinking 3 days prior and believes he is in alcohol withdrawal. The patient also felt his potassium may be low due to having similar symptoms due to that issue in the past (2-3 months ago). The patient is a heavy drinker and has been drinking about a fifth of alcohol a day for the last 4 months. He denies any CP, SOB, AP or CORDOVA. The patient did vomit once prior to arrival that morning. Health history includes: every day smoker, ETOH abuse, seizures with alcohol abuse, tachycardia, HTN, anxiety, depression. In the ED, vital signs were within normal limits, K was 3.1, chloride 86, BUN 5, creat 0.6, mag <1.0. EKG demonstrated LVH with repolarization abnormalities. He was admitted for inpatient treatment due to the extent of his tremors, vomiting, and withdrawal and the patient did agree. 02/19/19: Pt. is resting in bed. He met with Di () this morning for his previously scheduled appointment. He reports that he does have an appt with his PCP at 1pm today that he would like to go to. Vitals remain stable. K increased to 4.2, chloride increased to 101, BUN 4, creat 0.5, mag increased to 2.7 (was replaced with 6gm). CIWA scale has remained less than 5, he is tolerating librium well. Pt. reported that he has been admitted to inpatient rehab for ETOH treatment in the past, and his PCP has prescribed libruim in the past. Plan to d/c home- planning for PCP to manage librium as OP. Provided education to pt. regarding importance of continuing multivitamin supplementation, including potassium, magnesium, thiamine, folic acid. PCP: Dr. 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 EKG NOW 02/18/19 18:15 Ice Hockey Coach .Continuous Abnormal Labs: Abnormal Lab Results 02/18/19 02/18/19 02/18/19 Range/Units 16:15 16:15 16:15 WBC (4.2-12.2) K/uL RBC 4.03 L (4.40-5.70) M/uL Hgb 13.0 L (14.0-18.0) gm/dl Hct 38.4 L (42.0-52.0) % MCV (81-97) fl Plt Count 75 L (130-400) K/uL MPV 12.0 H (7.4-10.4) fl Monocytes % 12.6 H (0-9) % APTT 22.4 L (24.5-39.1) SECONDS Potassium 3.1 L (3.4-4.5) mmol/L Chloride 86 L (98-107) mmol/L Anion Gap 31.0 H (7-16) BUN 5 L (6-20) mg/dL Creatinine 0.6 L (0.7-1.2) mg/dL Random Glucose 117 H (74-109) mg/dL Calcium (8.6-10.0) mg/dL Magnesium (1.6-2.6) mg/dL Total Bilirubin 1.20 H (0.2-1.0) mg/dL AST 508 H (10.0-50.0) U/L ALT 217 H (<41) U/L Total Protein (6.6-8.7) g/dL Albumin 5.1 H (4.0-5.0) g/dL Albumin/Globulin Ratio (1.1-1.8) 02/18/19 02/19/19 02/19/19 Range/Units 16:15 06:19 06:19 WBC 3.9 L (4.2-12.2) K/uL RBC 3.39 L (4.40-5.70) M/uL Hgb 10.7 L (14.0-18.0) gm/dl Hct 33.0 L (42.0-52.0) % MCV 97.3 H (81-97) fl Plt Count 52 L (130-400) K/uL MPV 11.8 H (7.4-10.4) fl Monocytes % 14.4 H (0-9) % APTT (24.5-39.1) SECONDS Potassium (3.4-4.5) mmol/L Chloride (98-107) mmol/L Anion Gap (7-16) BUN 4 L (6-20) mg/dL Creatinine 0.5 L (0.7-1.2) mg/dL Random Glucose (74-109) mg/dL Calcium 8.5 L (8.6-10.0) mg/dL Magnesium < 1.0 L* 2.7 H (1.6-2.6) mg/dL Total Bilirubin 1.30 H (0.2-1.0) mg/dL AST 487 H (10.0-50.0) U/L ALT 188 H (<41) U/L Total Protein 6.2 L (6.6-8.7) g/dL Albumin (4.0-5.0) g/dL Albumin/Globulin Ratio 2.1 H (1.1-1.8) Condition at Discharge: (2) Stable VTE Discharge VTE Reason For No Overlap Therapy: Not Indicated Discharge Medications - Discharge Medications Home Medications: Ambulatory Orders Metoprolol Succinate [Toprol Xl] 100 mg PO DAILY 12/25/17 [Last Taken 02/18/19] Chlordiazepoxide HCl [Librium] 25 mg PO TID capsule 02/19/19 [Last Taken Unknown] Cyanocobalamin (Vitamin B-12) [Vitamin B-12] 100 mcg PO DAILY tablet 02/19/19 [Last Taken Unknown] Folic Acid 1 mg PO DAILY tablet 02/19/19 [Last Taken Unknown] Multivitamin/Iron/Folic Acid [Centrum] 1 tab PO DAILY tablet 02/19/19 [Last Taken Unknown] Thiamine Mononitrate [Vitamin B-1] 100 mg PO BID tablet 02/19/19 [Last Taken U nknown] Discharge Plan - Discharge Instructions Diet at Discharge: Regular Diet Additional Instructions: Follow up with Dr. Kumar at 1:00pm today as previously scheduled- plan for PCP to manage librium outpatient Please follow up with Di as scheduled February 26 at 9AM. Contact [facility] to be connected with Substance Abuse treatment [phone]. Return to ED if symptoms worsen, or if you experience any chest pain Quality Measures - Quality Measures Quality Measures: Documentation of Current Medications in Medical Record, Screening for High Blood Pressure and F/U Documented - Current Medications Quality Measure: Measure #130: Documentation of Current Medications Documentation of Current Medications: <Current Medications Documented/Reviewed> [[id number]] - Blood Pressure Screening Quality Measure: Screening for High Blood Pressure and Follow-Up Documented Does Patient Have Any of the Following: Active Dx of HTN Blood Pressure Classification: Hypertensive Reading Systolic Measurement: 116 Diastolic Measurement: 106 Screening for High Blood Pressure: Patient Exclusion, Hx of HTN [G9744] - Elder Abuse Suspicion Index EASI Reference Information: Dianna COELHO, Yaya C, Faith Collazo, Rojelio Knight.Development and validation of a tool to assist physicians identification of elder abuse: The Elder Abuse Suspicion Index (EASI ). Journal of Elder Abuse and Neglect, 2008; 20 (3): 276-300.
== END 2019-02-19 12:05 | disposition home or self-care (01) ==
LOC: ER 16:01 → MEDSURG 18:09 → INTOOBSV 18:09
PROVIDERS: ADMIT Internal Medicine; ATTEND Internal Medicine
DX: F10.230 Alcohol dependence with withdrawal, uncomplicated (principal); E87.6 Hypokalemia; E83.42 Hypomagnesemia; R25.1 Tremor, unspecified; F10.239 Alcohol dependence with withdrawal, unspecified; R00.0 Tachycardia, unspecified; K76.9 Liver disease, unspecified; F17.210 Nicotine dependence, cigarettes, uncomplicated
CPT/HCPCS: 99285 ×2; 96376; 96365; 96375; 96361; 82550; 83735 ×2; 85025 ×2; 85730; 85610; 82553; 80053 ×2; 84443; 84484; 93005; 93010; G0378 ×2; G0480; J2060 ×2; 80320; 99220; J3411; J7030

== ENCOUNTER 2019-06-24 09:13 | Emergency (ER) | payer MEDICAID ==
--- NOTE | 2019-06-24 09:29 | Emergency Department Record ---
History of Present Illness - General Chief Complaint: Alcohol Intoxication Stated Complaint: ALCOHOL WITHDRAWL Time Seen by Provider: 06/24/19 09:19 Source: Patient Mode of Arrival: Ambulatory Limitations: No limitations - History of Present Illness Initial Comments: The patient is here due to waking up an hour ago feeling shaky. He is a heavy alcohol user and sometimes drinks a fifth a day. His last drink was 8 hours ago. The patient also has a hx of anxiety and depression. There has been no hx of recent nausea, vomiting, diarrhea, or hallucinations. The patient was admitted here 4 months ago for a day for alcohol withdrawal. He was sober for about a month but started drinking again roughly 3 months ago. The patient did drive here without difficulty. MD Complaint: Alcohol intoxication, Alcohol withdrawal Time Since Last Drink: 8 -: Hour(s) Chronic Alcohol Use: Yes Previous Visits for Alcohol Intoxication?: Yes Recent Trauma: No Associated Symptoms: Tremors - Kai Coma Scale Eye Response: (4) Open spontaneously Motor Response: (6) Obeys commands Verbal Response: (5) Oriented [place] Total: 15 - Related Data Home Medications Medication Instructions Recorded Confirmed Last Taken Sertraline HCl [Zoloft] 50 mg PO DAILY 06/24/19 06/24/19 Unknown Previous Rx's Medication Instructions Recorded Chlordiazepoxide HCl [Librium] 25 mg PO TID capsule 02/19/19 Cyanocobalamin (Vitamin B-12) 100 mcg PO DAILY tablet 02/19/19 [Vitamin B-12] Folic Acid 1 mg PO DAILY tablet 02/19/19 Multivitamin/Iron/Folic Acid 1 tab PO DAILY tablet 02/19/19 [Centrum] Thiamine Mononitrate [Vitamin B-1] 100 mg PO BID tablet 02/19/19 Lorazepam [Ativan] 1 mg PO Q12HR #6 tablet 06/24/19 Allergies Allergy/AdvReac Type Severity Reaction Status Date / Time No Known Drug Allergies Allergy Verified 06/24/19 09:19 Travel Screening - Travel/Exposure Within Last 30 Days Have you traveled within the last 30 days?: No Review of Systems Constitutional: Denies: Chills, Fever Eyes: Denies: Eye discharge ENT: Denies: Congestion Respiratory: Denies: Cough, Dyspnea Cardiovascular: Denies: Arrhythmia Endocrine: Denies: Fatigue Gastrointestinal: Denies: Nausea Genitourinary: Denies: Dysuria Musculoskeletal: Denies: Arthralgia Neurological: Reports: Tremors. Denies: Confusion, Headache Past Medical History - SOCIAL HISTORY Smoking Status: Current every day smoker Alcohol Use: Heavy Alcohol Use Comment: fifth a day Drug Use: None - RESPIRATORY Hx Respiratory Disorders: No - CARDIOVASCULAR Hx Cardio Disorders: Yes Hx Hypertension: Yes Hx Irregular Heartbeat: Yes (tachycardia) - NEURO Hx Neuro Disorders: No - GI Hx GI Disorders: Yes Hx Liver Disease: Yes - Hx Genitourinary Disorders: No - ENDOCRINE Hx Endocrine Disorders: No - MUSCULOSKELETAL Hx Musculoskeletal Disorders: No - PSYCH Hx Psych Problems: Yes Hx Anxiety: Yes Hx Depression: Yes Comment:: alcholism - HEMATOLOGY/ONCOLOGY Hx Hematology/Oncology Disorders: No Family Medical History Any Significant Family History?: Yes Hx Alcohol Use: Father Hx Cancer: Mother Physical Exam - General General Appearance: Alert, Oriented x3, Cooperative, No acute distress - Head Head exam: Atraumatic, Normocephalic, Normal inspection - Eye Eye exam: Normal appearance, PERRL, EOMI - ENT Throat exam: Normal inspection. negative: Tonsillar erythema, Tonsillar exudate - Neck Neck exam: Normal inspection, Full ROM. negative: Tenderness - Respiratory Respiratory exam: Normal lung sounds bilaterally. negative: Respiratory distress - Cardiovascular Cardiovascular Exam: Regular rate, Normal rhythm, Normal heart sounds - GI/Abdominal GI/Abdominal exam: Soft, Normal bowel sounds. negative: Tenderness - Extremities Extremities exam: Normal inspection, Full ROM, Normal capillary refill. negative: Tenderness - Neurological Neurological exam: Alert, Normal gait, Oriented X3 (The patient has clear speech and is ambulating normally without ataxia.), Other (The patient does have a mild tremor at this time.). negative: Abnormal gait, Altered, Motor sensory deficit Course Vital Signs 06/24/19 09:15 Temperature 98.0 F Pulse Rate 91 H Respiratory 20 Rate Blood Pressure 159/94 Pulse Ox 99 - Reevaluation(s) Reevaluation #1: The patient is doing very well at this time. His HR is in the 60's and he no longer has any tremors. I did discuss his lab work which does demonstrate and al cohol level of .38. Due to that level I do feel it is unlikely he is in significant alcohol withdrawal and do feel he is just anxious about trying to stop drinking on his own. We will continue to hydrate him and offer him an Ativan taper at home. 10/07/19 10:08 Reevaluation #2: The patient is doing very well at this time. He was sleeping when I got into the room. He is up walking with no ataxia and has clear speech with normal balance. I did explain to him that I can provide him with a short Ativan taper for home to help him stop drinking. He is to see his doctor later this week for recheck and is to NOT drive until sober. He is able to get a ride home and I do feel he is stable for discharge. 06/24/19 10:55 Medical Decision Making - Data Complexity MDM Data: Labs Ordered and/or Reviewed, EKG Ordered and/or Reviewed - Lab Data Result diagrams: 06/24/19 09:25 06/24/19 09:25 - EKG Data -: EKG Interpreted by Me EKG: No Acute Changes, Unchanged From Previous Disposition Disposition: Discharge Clinical Impression: Alcohol abuse Disposition: Home, Self-Care Condition: (2) Stable Instructions: Abuse of Alcohol (ED) Additional Instructions: Please significantly cut back your drinking and go into AA please. Take the At abdirahman to help cut back your alcohol intake. Please see your doctor later this week for recheck and please return to the ER for any worsening symptoms, pain, tremors, vomiting, or confusion. Prescriptions: Lorazepam [Ativan] 1 mg PO Q12HR #6 tablet Forms: Patient Portal Access Time of Disposition: 10:59 Quality - Quality Measures Quality Measures: N/A - Blood Pressure Screening View Details: Yes Does Patient Have Any of the Following: No Blood Pressure Classification: Pre-Hypertensive BP Reading Systolic Measurement: 127 Diastolic Measurement: 86 Screening for High Blood Pressure: < Pre-Hypertensive BP, F/U Documented > [G8950] Pre-Hypertensive Follow-up Interventions: Referral to alternative/primary care provider.
[2019-06-24] MEDS: LORAZEPAM 2 MG/ML VIAL IV ONE (09:33)
[2019-06-24] MEDS: 0.9 % SODIUM CHLORIDE 1,000 ML BAG IV ONE (09:33)
[2019-06-24 09:34] LABS: ABSOLUTE NEUTROPHIL COUNT 1.57; HEMATOCRIT 40.7 % (42.0-52.0); HEMOGLOBIN 13.7 gm/dl (14.0-18.0); MEAN CELL VOLUME 91.5 fl (81-97); MEAN CORPUSCULAR HGB CONC 33.7 g/dl (32-36); MEAN PLATELET VOLUME 11.2 fl (7.4-10.4); PLATELET COUNT 91 K/uL (130-400); RED BLOOD COUNT 4.45 M/uL (4.40-5.70); RED CELL DISTRIBUTION WIDTH 15.8 % (11.5-14.5)
[2019-06-24 09:37] LABS: MEAN CORPUSCULAR HEMOGLOBIN 30.7 pg (27-33)
[2019-06-24 09:44] LABS: BLOOD UREA NITROGEN 8 mg/dL (6-20); CREATININE 0.5 mg/dL (0.7-1.2); EST GLOMERULAR FILTRATION RATE > 60 mL/min; PLATELET ESTIMATE DECREASED (NORMAL)
[2019-06-24 09:45] LABS: TOTAL PROTEIN 7.2 g/dL (6.6-8.7)
[2019-06-24 09:47] LABS: GLUCOSE,RANDOM 97 mg/dL (74-109)
[2019-06-24 09:49] LABS: ALT/SGPT 198 U/L (<41); AST/SGOT 341 U/L (10.0-50.0); BILIRUBIN,DIRECT 0.2 mg/dL (0-0.3)
[2019-06-24 09:50] LABS: ALBUMIN 4.8 g/dL (4.0-5.0); ALCOHOL 0.385 g/dL (0-0.010); ALKALINE PHOSPHATASE 102 U/L (40-129)
[2019-06-24] MEDS: POTASSIUM CHLORIDE 20 MEQ TABLET PO ONE (10:18)
== END 2019-06-24 11:40 | disposition home or self-care (01) ==
LOC: ER 09:13
DX: F10.229 Alcohol dependence with intoxication, unspecified (principal); R42 Dizziness and giddiness; F41.8 Other specified anxiety disorders; F17.210 Nicotine dependence, cigarettes, uncomplicated; Y90.1 Blood alcohol level of 20-39 mg/100 ml
CPT/HCPCS: 80048; 80076; 80320; 83735; 85027; 93005; 93010; 96361; 96374; 99284; J7030

== ENCOUNTER 2019-11-02 12:09 | Observation (INO) | payer MEDICAID ==
[2019-11-02] MEDS ORDERED: LORAZEPAM 2 MG/ML VIAL IV ONE ×2 (12:22→12:26)
[2019-11-02] MEDS ORDERED: 0.9 % SODIUM CHLORIDE 1,000 ML BAG IV ONE (12:26)
[2019-11-02] MEDS ORDERED: MVI, ADULT NO.4 WITH VIT K 10 ML, THIAMINE HCL IV 100 MG in 0.9 % SODIUM CHLORIDE 1000M... IV SCH ×3 (12:30)
--- NOTE | 2019-11-02 12:30 | Emergency Department Record ---
History of Present Illness - General Chief complaint: Dehydration Stated complaint: DEHYDRATION Time Seen by Provider: 11/02/19 12:22 Source: Patient Mode of Arrival: Ambulatory Limitations: No limitations - History of Present Illness Initial comments: 34 yo male presents with nausea, shaking, and tremor. He admits to chronic alcohol abuse. He normally drinks about 1/5th a day. His last drinking was about 12 hours ago. He woke up with skaking tremor and nausea. He denies any seizure. His longest period of sobriety in the last year was 40 days (many months ago). No diarrhea. He feels dehydrated. No confusion or hallucinations. He has been treated 5 times at an inpatient treatment program. MD Complaint: Generalized weakness Location: Generalized Severity: Moderate Quality: Other (shaking) Improves with: None Worsens with: None Context: Other (chronic abuse) Associated Symptoms: Nausea/vomiting - Kai Coma Scale Eye Response: (4) Open spontaneously Motor Response: (6) Obeys commands Verbal Response: (5) Oriented Kai Total: 15 - Related Data Home Medications Medication Instructions Recorded Confirmed Last Taken Hydroxyzine HCl 10 mg PO ASDIR 11/02/19 11/02/19 Unknown Previous Rx's Medication Instructions Recorded Cyanocobalamin (Vitamin B-12) 100 mcg PO DAILY tablet 02/19/19 [Vitamin B-12] Folic Acid 1 mg PO DAILY tablet 02/19/19 Multivitamin/Iron/Folic Acid 1 tab PO DAILY tablet 02/19/19 [Centrum] Thiamine Mononitrate [Vitamin B-1] 100 mg PO BID tablet 02/19/19 Allergies Allergy/AdvReac Type Severity Reaction Status Date / Time No Known Drug Allergies Allergy Verified 11/02/19 12:17 Travel/Exposure Screening - Travel/Exposure Within Last 30 Days Have you traveled within the last 30 days?: No - Additonal Travel/Exposure Details Have you been exposed to anyone with a communicable illness?: No Review of Systems Constitutional: Reports: Malaise, Weakness. Denies: Chills, Fever Eyes: Denies: Eye discharge, Eye pain, Photophobia, Vision change ENT: Denies: Congestion, Throat pain Respiratory: Denies: Cough, Dyspnea, Hemoptysis, Stridor, Wheezes Cardiovascular: Denies: Chest pain, Edema, Palpitations, Syncope Endocrine: Reports: Fatigue. Denies: Polydipsia, Polyuria Gastrointestinal: Reports: Abdominal pain, Nausea, Vomiting. Denies: Diarrhea Genitourinary: Denies: Dysuria, Frequency, Hematuria Musculoskeletal: Denies: Arthralgia, Back pain, Myalgia Skin: Denies: Bruising, Change in color, Rash Neurological: Reports: Tremors, Weakness. Denies: Headache, Numbness Psychiatric: Denies: Anxiety, Auditory hallucinations, Depression Hematological/Lymphatic: Denies: Blood Clots, Easy bleeding, Easy bruising Past Medical History - SOCIAL HISTORY Smoking Status: Current every day smoker Alcohol Use: Heavy - RESPIRATORY Hx Respiratory Disorders: No - CARDIOVASCULAR Hx Cardio Disorders: Yes Hx Hypertension: Yes Hx Irregular Heartbeat: Yes (tachycardia) - NEURO Hx Neuro Disorders: No Hx Seizures: No - GI Hx GI Disorders: Yes Hx Liver Disease: Yes - Hx Genitourinary Disorders: No - ENDOCRINE Hx Endocrine Disorders: No - MUSCULOSKELETAL Hx Musculoskeletal Disorders: No - PSYCH Hx Psych Problems: Yes Hx Anxiety: Yes Hx Depression: Yes Comment:: alcholism - HEMATOLOGY/ONCOLOGY Hx Hematology/Oncology Disorders: No Family Medical History Any Significant Family History?: Yes Hx Alcohol Use: Father Hx Cancer: Mother Physical Exam - General General Appearance: Alert, Oriented x3, Cooperative, No acute distress Limitations: No limitations - Head Head exam: Atraumatic, Normal inspection - Eye Eye exam: Normal appearance, PERRL. negative: Conjunctival injection, Scleral icterus - ENT ENT exam: Normal exam, Mucous membranes dry Ear exam: Normal external inspection Nasal Exam: Normal inspection Mouth exam: Normal external inspection - Neck Neck exam: Normal inspection, Full ROM. negative: Lymphadenopathy - Respiratory Respiratory exam: Normal lung sounds bilaterally. negative: Accessory muscle use, Decreased breath sounds, Prolonged expiratory, Rhonchi, Stridor, Wheezes - Cardiovascular Cardiovascular Exam: Normal rhythm, Normal heart sounds, Tachycardia. negative: Regular rate Peripheral Pulses: 2+: Radial (R), Radial (L) - GI/Abdominal GI/Abdominal exam: Soft. negative: Distended, Rebound, Rigid, Tenderness - Rectal Rectal exam: Deferred - exam: Deferred - Extremities Extremities exam: Normal inspection. negative: Calf tenderness, Pedal edema, Tenderness - Back Back exam: Denies: CVA tenderness (R), CVA tenderness (L) - Neurological Neurological exam: Alert, CN II-XII intact, Normal gait, Oriented X3. negative: Abnormal gait, Altered, Motor sensory deficit - Psychiatric Psychiatric exam: Anxious. negative: Agitated - Skin Skin exam: Dry, Intact, Normal color, Warm Course Vital Signs 11/02/19 12:18 Pulse Rate 170 H Respiratory 22 Rate Blood Pressure 146/102 Pulse Ox 100 - Reevaluation(s) Reevaluation #1: EKG #1: 12:27 Rate: 106 Rhythm: sinus tachycardia [place]: normal Intervals: normal ST segments: NS LVH, Prior: 11/02/19 12:38 11/02/19 13:17 HR improved. Tremors improved. 11/02/19 13:18 The CBC was reviewed No acute changes The CMP was reviewed HCO3 is 18 AG is 33 Normal renal function AST 160 ALT 110 Magnesium 1.5 Alcohol is .259 Lipase is normal 11/02/19 13:34 The patient will be admitted to Dr Yfn HOANG for hydration, CIWA scoring, and electrolyte replacement Medical Decision Making - Lab Data Result diagrams: 11/02/19 12:25 11/02/19 12:25 Disposition Disposition: Admit Clinical Impression: Alcohol withdrawal Qualifiers: Complication of substance-induced condition: uncomplicated Qualified Code(s): F10.230 - Alcohol dependence with withdrawal, uncomplicated Disposition: Still a Patient at [facility] Decision to Admit: Admit from ER Decision to Admit Date: 11/02/19 Decision to Admit Time: 13:34 Condition: (2) Stable Time of Disposition: 13:34 Quality - Quality Measures Quality Measures: N/A - Blood Pressure Screening Does Patient Have Any of the Following: No Blood Pressure Classification: Hypertensive Reading Systolic Measurement: 134 Diastolic Measurement: 97 Screening for High Blood Pressure: < Pre-Hypertensive BP, F/U Documented > [G8950] Pre-Hypertensive Follow-up Interventions: Referral to alternative/primary care provider.
[2019-11-02 12:34] LABS: ABSOLUTE NEUTROPHIL COUNT 5.56; BASO % 1.5 % (0-6); EOS % 2.6 % (0-6); GRAN % 59.7 % (47-80); HEMATOCRIT 44.3 % (42.0-52.0); HEMOGLOBIN 15.1 gm/dl (14.0-18.0); LYMPH % 25.6 % (16-45); MEAN CELL VOLUME 92.1 fl (81-97); MEAN CORPUSCULAR HEMOGLOBIN 31.4 pg (27-33); MEAN CORPUSCULAR HGB CONC 34.1 g/dl (32-36); MEAN PLATELET VOLUME 9.5 fl (7.4-10.4); MONO % 10.6 % (0-9); PLATELET COUNT 289 K/uL (130-400); RED BLOOD COUNT 4.81 M/uL (4.40-5.70); RED CELL DISTRIBUTION WIDTH 16.2 % (11.5-14.5); WHITE BLOOD COUNT W/O DIFF 9.3 K/uL (4.2-12.2)
[2019-11-02 12:45] LABS: BLOOD UREA NITROGEN 9 mg/dL (6-20); CREATININE 0.7 mg/dL (0.7-1.2); EST GLOMERULAR FILTRATION RATE > 60 mL/min; LIPASE 41 U/L (13-60); TOTAL PROTEIN 7.9 g/dL (6.6-8.7)
[2019-11-02 12:47] LABS: ALCOHOL 0.259 g/dL (0-0.010); GLUCOSE,RANDOM 66 mg/dL (74-109)
[2019-11-02 12:50] LABS: ALB/GLOB RATIO 1.6 (1.1-1.8); ALBUMIN 4.9 g/dL (4.0-5.0); ALKALINE PHOSPHATASE 68 U/L (40-129); ALT/SGPT 110 U/L (<41); AST/SGOT 160 U/L (10.0-50.0)
[2019-11-02] MEDS ORDERED: MAGNESIUM SULFATE 16 MEQ in 0.9 % SODIUM CHLORIDE 100ML 100 ML IV ONE (13:18)
[2019-11-02] MEDS ORDERED: HYDROXYZINE HCL 10 MG PO SCH (14:09)
[2019-11-02] MEDS: SOD CHLOR 0.9% WITH KCL 40MEQ 40 MEQ/1,000 ML IV.SOLN IV SCH ×2 (14:56→21:41)
[2019-11-02] MEDS: THIAMINE MONONITRATE 100 MG TABLET PO SCH (21:21)
[2019-11-02] MEDS: LORAZEPAM 2 MG/ML VIAL IV PRN (21:31)
[2019-11-03] MEDS: LORAZEPAM 2 MG/ML VIAL IV PRN (00:45)
[2019-11-03 07:00] LABS: BLOOD UREA NITROGEN 5 mg/dL (6-20); CREATININE 0.5 mg/dL (0.7-1.2); EST GLOMERULAR FILTRATION RATE > 60 mL/min; GLUCOSE,RANDOM 95 mg/dL (74-109)
[2019-11-03] MEDS: SOD CHLOR 0.9% WITH KCL 40MEQ 40 MEQ/1,000 ML IV.SOLN IV SCH (07:17)
[2019-11-03] MEDS ORDERED: MAGNESIUM SULFATE 16 MEQ in 0.9 % SODIUM CHLORIDE 100ML 100 ML IV ONE (09:55)
[2019-11-03] MEDS ORDERED: CYANOCOBALAMIN (VITAMIN B-12) 100 MCG TABLET PO SCH (10:00)
[2019-11-03] MEDS ORDERED: METOPROLOL SUCC 50 MG TABLET PO SCH (10:00)
[2019-11-03] MEDS ORDERED: MULTIVITAMINS/MINERALS TABLET PO SCH (10:00)
[2019-11-03] MEDS ORDERED: FOLIC ACID 1 MG TABLET PO SCH (10:00)
[2019-11-03] MEDS: THIAMINE MONONITRATE 100 MG TABLET PO SCH (11:05)
--- NOTE | 2019-11-03 11:26 | Discharge Summary ---
Providers Discharge Summary Date: 11/03/19 Date of admission: 11/02/19 14:01 Expected Date of Discharge: 11/03/19 Attending physician: BALDOMERO WALKER Primary care physician: FILIPPO BOWENS Physical Exam - Vital Signs Vital Signs: Vital Signs - Last 24 Hrs Temp Pulse Pulse Pulse Resp BP BP 11/03/19 08:20 98.4 F 87 16 145/89 11/03/19 00:00 98.8 F 73 76 16 130/71 11/02/19 21:00 89 16 11/02/19 20:00 98.7 F 89 16 128/65 11/02/19 16:27 98.8 F 102 H 16 127/78 11/02/19 14:37 20 11/02/19 14:10 98.8 F 109 H 16 160/89 11/02/19 13:54 98.3 F 119 H 20 134/97 11/02/19 13:05 93 H 22 141/84 11/02/19 12:44 102 H 22 138/89 11/02/19 12:18 170 H 22 146/102 Pulse Ox 11/03/19 08:20 97 11/03/19 00:00 95 11/02/19 21:00 11/02/19 20:00 95 11/02/19 16:27 98 11/02/19 14:37 11/02/19 14:10 97 11/02/19 13:54 97 11/02/19 13:05 99 11/02/19 12:44 100 11/02/19 12:18 100 - General General Appearance: Alert, Oriented x3, Cooperative, No acute distress (mild tremor, mild anxiety) Limitations: No limitations - Head Head exam: Atraumatic, Normal inspection - Eye Eye exam: Normal appearance, PERRL. negative: Conjunctival injection, Scleral icterus - ENT ENT exam: Normal exam, Mucous membranes moist Ear exam: Normal external inspection Nasal Exam: Normal inspection Mouth exam: Normal external inspection - Neck Neck exam: Normal inspection, Full ROM. negative: Lymphadenopathy - Respiratory Respiratory exam: Normal lung sounds bilaterally. negative: Accessory muscle use, Decreased breath sounds, Prolonged expiratory, Rhonchi, Stridor, Wheezes - Cardiovascular Cardiovascular Exam: Regular rate, Normal rhythm, Normal heart sounds Peripheral Pulses: 2+: Radial (R), Radial (L) - GI/Abdominal GI/Abdominal exam: Soft, Hyperactive bowel sounds. negative: Distended, Rebound, Rigid, Tenderness - Rectal Rectal exam: Deferred - exam: Deferred - Extremities Extremities exam: Normal inspection. negative: Calf tenderness, Pedal edema, Tenderness - Back Back exam: Denies: CVA tenderness (R), CVA tenderness (L) - Neurological Neurological exam: Alert, CN II-XII intact, Normal gait, Oriented X3. negative: Abnormal gait, Altered, Motor sensory deficit - Psychiatric Psychiatric exam: Anxious. negative: Agitated - Skin Skin exam: Dry, Intact, Normal color, Warm Hospitalization - Hospitalization Admission Diagnosis: dehydration, alcohol withdrawal - Hospitalization Course Disposition: Home, Self-Care Hospital Course: PMHx: HTN, alcohol abuse/ dependence ED course: Pt presented to the ED with signs of "dehydration" He states that he felt tachycardia, weak, and dizzy. He states that he has been dehydrated in the past and knew what it felt like. He states that he usually drinks a fifth of hard liquor daily. He said his last drink was 12 hours prior to arriving to the ED He was admitted for dehydration and alcohol withdrawal. Vitals: Abnormal Labs: K 3.4, Cl 87, Anion gap 33, AST 160, ALT 110, Mg 1.5, ETOH 0.259 Abnormal Vitals: P 170, BP 146/102 Given: fluids, magnesium, potassium, and home meds including vitamins. telemetry monitor: tachycardic, sinus Hospital course (24 hours): Pt received 2 doses of ativan overnight. Last dose 12 hours prior to D/C Pt is mildly anxious and tremulous. CIWA score is 4 this AM Electrolytes except magnesium normalized. Mag mildly low at 1.5 HR wnl and sinus. Pt states that he is adamant about leaving to see his son today. He only gets him every 2 weeks for 5 hours. He doesn't want the child to see him in the hospital. He states that he has been in inpt rehab for alcohol abuse 5 times. He is looking into outpt rehab. He states that he is planning to go to meeting [employer] get a sponsor, give the car keys to his mother so he cannot get any alcohol or drive. There is no alcohol in the house currently. He lives with his mother. He states that he has an appointment with his primary care physician this Monday. She is aware of all his issues that started about 2011. He is hungry but otherwise feeling ok. Denies hx of depression or suicidal thoughts. Discharged in stable condition. Procedures: Cardiology Procedures 11/02/19 12:22 Urology Teacher NOW 11/02/19 12:23 EKG NOW Abnormal Labs: Abnormal Lab Results 11/02/19 11/02/19 11/02/19 Range/Units 12:25 12:25 12:25 RDW 16.2 H (11.5-14.5) % Monocytes % 10.6 H (0-9) % Potassium (3.4-4.5) mmol/L Chloride 87 L (98-107) mmol/L Carbon Dioxide 18.0 L (22-29) mmol/L Anion Gap 33.0 H (7-16) BUN (6-20) mg/dL Creatinine (0.7-1.2) mg/dL Random Glucose 66 L (74-109) mg/dL Magnesium 1.5 L (1.6-2.6) mg/dL AST 160 H (10.0-50.0) U/L ALT 110 H (<41) U/L Ethyl Alcohol 0.259 H (0-0.010) g/dL 11/03/19 Range/Units 06:30 RDW (11.5-14.5) % Monocytes % (0-9) % Potassium 4.7 H (3.4-4.5) mmol/L Chloride (98-107) mmol/L Carbon Dioxide (22-29) mmol/L Anion Gap (7-16) BUN 5 L (6-20) mg/dL Creatinine 0.5 L (0.7-1.2) mg/dL Random Glucose (74-109) mg/dL Magnesium 1.5 L (1.6-2.6) mg/dL AST (10.0-50.0) U/L ALT (<41) U/L Ethyl Alcohol (0-0.010) g/dL Condition at Discharge: (2) Stable Discharge Medications - Discharge Medications Prescriptions: Chlordiazepoxide HCl 1 - 2 cap PO Q4H PRN 5 Days #60 capsule PRN Reason: Alcohol Withdrawal Magnesium Oxide [Magnesium] 400 mg PO DAILY #90 tablet Home Medications: Ambulatory Orders Metoprolol Succinate [Toprol Xl] 100 mg PO DAILY 12/25/17 [Last Taken 02/18/19] Cyanocobalamin (Vitamin B-12) [Vitamin B-12] 100 mcg PO DAILY tablet 02/19/19 [Last Taken Unknown] Folic Acid 1 mg PO DAILY tablet 02/19/19 [Last Taken Unknown] Multivitamin/Iron/Folic Acid [Centrum] 1 tab PO DAILY tablet 02/19/19 [Last Taken Unknown] Thiamine Mononitrate [Vitamin B-1] 100 mg PO BID tablet 02/19/19 [Last Taken Unknown] Hydroxyzine HCl 10 mg PO ASDIR 11/02/19 [Last Taken Unknown] Chlordiazepoxide HCl 1 - 2 cap PO Q4H PRN 5 Days #60 capsule 11/03/19 [Last Taken Unknown] Magnesium Oxide [Magnesium] 400 mg PO DAILY #90 tablet 11/03/19 [Last Taken Unknown] Discharge Plan - Discharge Instructions Activity at Discharge: Resume Usual Activities As Tolerated Diet at Discharge: Regular Diet Instructions: Dehydration (DC), Abuse of Alcohol (DC) Additional Instructions: GO TO AA MEETING MORENA ALAMO A SPONSOR TODAY FOLLOW UP WITH YOUR REGULAR DOCTOR SCHEDULED NEXT WEEK USE CHLORDIAZEPOXIDE FOR ALCOHOL WITHDRAWAL SYMPTOMS ONLY IF SYMPTOMS DO NOT IMPROVE WITH MEDICATION GO TO ED DO NOT USE WITH ALCOHOL OR OVERDOSE POSSIBLE AND DO NOT DRIVE, GIVE KEYS TO MOTHER Continue home medications Continue heart healthy diet Continue activitly as tolerated Thank you for choosing [facility]!! Quality Measures - Quality Measures Quality Measures: Documentation of Current Medications in Medical Record, Screening for High Blood Pressure and F/U Documented - Current Medications Quality Measure: Measure #130: Documentation of Current Medications Documentation of Current Medications: <Current Medications Documented/Reviewed> [G8427] - Blood Pressure Screening Quality Measure: Screening for High Blood Pressure and Follow-Up Documented Does Patient Have Any of the Following: Active Dx of HTN Blood Pressure Classification: Hypertensive Reading Systolic Measurement: 134 Diastolic Measurement: 97 Screening for High Blood Pressure: Patient Exclusion, Hx of HTN [G9744] - Elder Abuse Suspicion Index EASI Reference Information: Dianna COELHO, Yaya C, Faith D, Rojelio Knight.Development and validation of a tool to assist physicians identification of elder abuse: The Elder Abuse Suspicion Index (EASI ). Journal of Elder Abuse and Neglect, 2008; 20 (3): 276-300.
--- NOTE | 2019-11-03 11:49 | History & Physical ---
History of Present Illness - Date of Service Date of Service for History & Physical: 11/03/19 - History of Present Illness Admitting Diagnosis: dehydration, alcohol withdrawal History of Present Illness: PMHx: HTN, alcohol abuse/ dependence ED course: Pt presented to the ED with signs of "dehydration" He states that he felt tachycardia, weak, and dizzy. He states that he has been dehydrated in the past and knew what it felt like. He states that he usually drinks a fifth of hard liquor daily. He said his last drink was 12 hours prior to arriving to the ED He was admitted for dehydration and alcohol withdrawal. Vitals: Abnormal Labs: K 3.4, Cl 87, Anion gap 33, AST 160, ALT 110, Mg 1.5, ETOH 0.259 Abnormal Vitals: P 170, BP 146/102 Given: fluids, magnesium, potassium, and home meds including vitamins. 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 Last dose 12 hours ago. Pt is mildly anxious and tremulous. CIWA score is 4 this AM Electrolytes except magnesium normalized. HR wnl and sinus. Pt states that he is adamant about leaving to see his son today. He only gets him every 2 weeks for 5 hours. He doesn't want him to see him in the hospital. He states that he has been in inpt rehab for alcohol abuse 5 times. He is looking into outpt rehab. He states that [facility], get a sponsor, give the car keys to his mother so he cannot get any alcohol or drive. There is no alcohol in the house currently. He lives with his mother. He states that he has an appointment with his primary care physician this Monday. She is aware of all his issues that started about 2011. He is hungry but otherwise feeling ok. Denies hx of depression or suicidal thoughts. Travel/Exposure Screening - Travel/Exposure Within Last 30 Days Have you traveled within the last 30 days?: No - Travel/Exposure Within Last Year Have you traveled outside the [place] in the last year?: No - Additonal Travel/Exposure Details Have you been exposed to anyone with a communicable illness?: No Review of Systems Constitutional: Denies: Chills, Fever, Malaise, Weakness Eyes: Denies: Eye discharge, Eye pain, Photophobia, Vision change ENT: Denies: Congestion, Throat pain Respiratory: Denies: Cough, Dyspnea, Hemoptysis, Stridor, Wheezes Cardiovascular: Denies: Chest pain, Edema, Palpitations, Syncope Endocrine: Denies: Fatigue, Polydipsia, Polyuria Gastrointestinal: Denies: Abdominal pain, Diarrhea, Nausea, Vomiting Genitourinary: Denies: Dysuria, Frequency, Hematuria Musculoskeletal: Denies: Arthralgia, Back pain, Myalgia Skin: Denies: Bruising, Change in color, Rash Neurological: Reports: Tremors. Denies: Headache, Numbness, Weakness Psychiatric: Denies: Anxiety, Auditory hallucinations, Depression Hematological/Lymphatic: Denies: Blood Clots, Easy bleeding, Easy bruising Past Medical History - SOCIAL HISTORY Smoking Status: Current every day smoker Alcohol Use: Heavy - RESPIRATORY Hx Respiratory Disorders: No - CARDIOVASCULAR Hx Cardio Disorders: Yes Hx Hypertension: Yes Hx Irregular Heartbeat: Yes (tachycardia) - NEURO Hx Neuro Disorders: No Hx Seizures: No - GI Hx GI Disorders: Yes Hx Liver Disease: Yes - Hx Genitourinary Disorders: No - ENDOCRINE Hx Endocrine Disorders: No - MUSCULOSKELETAL Hx Musculoskeletal Disorders: No - PSYCH Hx Psych Problems: Yes Hx Anxiety: Yes Hx Depression: Yes Comment:: alcholism - HEMATOLOGY/ONCOLOGY Hx Hematology/Oncology Disorders: No Family Medical History Any Significant Family History?: Yes Hx Alcohol Use: Father Hx Cancer: Mother H&P Meds/Allergies - Allergies Allergies: Allergies Allergy/AdvReac Type Severity Reaction Status Date / Time No Known Drug Allergies Allergy Verified 11/02/19 12:17 - Home Medications Home Medications Medication Instructions Recorded Confirmed Last Taken Hydroxyzine HCl 10 mg PO ASDIR 11/02/19 11/02/19 Unknown Previous Rx's Medication Instructions Recorded Cyanocobalamin (Vitamin B-12) 100 mcg PO DAILY tablet 02/19/19 [Vitamin B-12] Folic Acid 1 mg PO DAILY tablet 02/19/19 Multivitamin/Iron/Folic Acid 1 tab PO DAILY tablet 02/19/19 [Centrum] Thiamine Mononitrate [Vitamin B-1] 100 mg PO BID tablet 02/19/19 Chlordiazepoxide HCl 1 - 2 cap PO Q4H PRN 5 Days #60 11/03/19 capsule Magnesium Oxide [Magnesium] 400 mg PO DAILY #90 tablet 11/03/19 - Active Medications Active Medications: Current Medications Cyanocobalamin (Vitamin B-12) 100 mcg PO DAILY COUNTS INCLUDE 234 BEDS AT THE [facility] Last Admin: 11/03/19 11:06 Dose: 100 mcg Documented by: Folic Acid () 1 mg PO DAILY COUNTS INCLUDE 234 BEDS AT THE [facility] Last Admin: 11/03/19 11:05 Dose: 1 mg Documented by: Multivitamins/Minerals 10 ml/Thiamine HCl 100 mg/ Sodium Chloride 1,011 mls @ 0 mls/hr IV .Q0M COUNTS INCLUDE 234 BEDS AT THE [facility] Last Infusion: 11/02/19 14:49 Dose: Infused Documented by: Magnesium Sulfate 16 meq/ (Sodium Chloride) 104 mls @ 50 mls/hr IV NOW ONE Stop: 11/03/19 11:59 Last Admin: 11/03/19 11:16 Dose: Not Given Documented by: Lorazepam (Ativan) 1 mg IV Q2H PRN PRN Reason: ALCOHOL WITHDRAWAL Last Admin: 11/03/19 00:45 Dose: 1 mg Documented by: Metoprolol Succinate (Toprol Xl) 100 mg PO DAILY COUNTS INCLUDE 234 BEDS AT THE [facility] Last Admin: 11/03/19 11:06 Dose: 100 mg Documented by: Multivitamins/Minerals (Centrum) 1 tab PO DAILY COUNTS INCLUDE 234 BEDS AT THE [facility] Last Admin: 11/03/19 11:06 Dose: 1 tab Documented by: Non-Formulary Medication (Hydroxyzine Hcl [Hydroxyzine Hcl]) 10 mg PO ASDIR COUNTS INCLUDE 234 BEDS AT THE [facility] Physical Exam - Vital Signs Vital Signs: Vital Signs - Last 24 Hrs Temp Pulse Pulse Pulse Resp BP BP 11/03/19 09:00 16 11/03/19 08:20 98.4 F 87 16 145/89 11/03/19 00:00 98.8 F 73 76 16 130/71 11/02/19 21:00 89 16 11/02/19 20:00 98.7 F 89 16 128/65 11/02/19 16:27 98.8 F 102 H 16 127/78 11/02/19 14:37 20 11/02/19 14:10 98.8 F 109 H 16 160/89 11/02/19 13:54 98.3 F 119 H 20 134/97 11/02/19 13:05 93 H 22 141/84 11/02/19 12:44 102 H 22 138/89 11/02/19 12:18 170 H 22 146/102 Pulse Ox 11/03/19 09:00 11/03/19 08:20 97 02/16/20 00:00 95 11/02/19 21:00 11/02/19 20:00 95 11/02/19 16:27 98 11/02/19 14:37 11/02/19 14:10 97 11/02/19 13:54 97 11/02/19 13:05 99 11/02/19 12:44 100 11/02/19 12:18 100 - General General Appearance: Alert, Oriented x3, Cooperative, No acute distress (mild tremor and anxiety present) Limitations: No limitations - Head Head exam: Atraumatic, Normocephalic, Normal inspection - Eye Eye exam: Normal appearance, PERRL. negative: Conjunctival injection, Scleral icterus - ENT ENT exam: Normal exam, Mucous membranes moist Ear exam: Normal external inspection Nasal Exam: Normal inspection Mouth exam: Normal external inspection Teeth exam: Normal inspection - Neck Neck exam: Normal inspection, Full ROM. negative: Lymphadenopathy - Respiratory Respiratory exam: Normal lung sounds bilaterally. negative: Accessory muscle use, Decreased breath sounds, Prolonged expiratory, Rhonchi, Stridor, Wheezes - Cardiovascular Cardiovascular Exam: Regular rate, Normal rhythm, Normal heart sounds. negative: Diastolic murmur, Systolic murmur Peripheral Pulses: 2+: Radial (R), Radial (L) - GI/Abdominal GI/Abdominal exam: Soft, Hyperactive bowel sounds. negative: Distended, Rebound, Rigid, Tenderness - Rectal Rectal exam: Deferred - exam: Deferred - Extremities Extremities exam: Normal inspection. negative: Calf tenderness, Pedal edema, Tenderness - Back Back exam: Denies: CVA tenderness (R), CVA tenderness (L) - Neurological Neurological exam: Alert, Oriented X3. negative: Abnormal gait, Altered, Motor sensory deficit - Psychiatric Psychiatric exam: Anxious. negative: Agitated - Skin Skin exam: Dry, Intact, Normal color, Warm Results - Labs Result Diagrams: 11/02/19 12:25 11/03/19 06:30 Labs Last 24 Hours: Laboratory Results - last 24 hr 11/02/19 11/02/19 11/02/19 12:25 12:25 12:25 WBC 9.3 RBC 4.81 Hgb 15.1 Hct 44.3 MCV 92.1 MCH 31.4 MCHC 34.1 RDW 16.2 H Plt Count 289 MPV 9.5 Gran % 59.7 Lymphocytes % 25.6 Monocytes % 10.6 H Eosinophils % 2.6 Basophils % 1.5 Absolute Neutrophils 5.56 Sodium 138 Potassium 3.4 Chloride 87 L Carbon Dioxide 18.0 L Anion Gap 33.0 H BUN 9 Creatinine 0.7 Estimated GFR > 60 Random Glucose 66 L Calcium 9.2 Magnesium 1.5 L Total Bilirubin 0.80 AST 160 H ALT 110 H Alkaline Phosphatase 68 Total Protein 7.9 Albumin 4.9 Globulin 3.0 Albumin/Globulin Ratio 1.6 Lipase 41 Ethyl Alcohol 0.259 H 11/03/19 06:30 WBC RBC Hgb Hct MCV MCH MCHC RDW Plt Count MPV Gran % Lymphocytes % Monocytes % Eosinophils % Basophils % Absolute Neutrophils Sodium 136 Potassium 4.7 H Chloride 103 Carbon Dioxide 23.0 Anion Gap 10.0 BUN 5 L Creatinine 0.5 L Estimated GFR > 60 Random Glucose 95 Calcium 9.0 Magnesium 1.5 L Total Bilirubin AST ALT Alkaline Phosphatase Total Protein Albumin Globulin Albumin/Globulin Ratio Lipase Ethyl Alcohol VTE H&P Assessment - Risk for VTE Risk for VTE: Yes Risk Level: Very Low (encourage ambulation) Risk Assessment Date: 11/03/19 Risk Assessment Time: 12:06 VTE Orders Placed or Will Be Placed: Yes Plan - Detailed Diagnosis and Plan (1) Dehydration Current Visit: Yes Status: Acute Base Code: E86.0 - DEHYDRATION Priority: High Comment: - 2/2 to alcohol abuse. - IV Fluids - K+ on higher end now - Mg still 1.5 despite infusion. - Anion gap resolved. - Tachycardia resolved. (2) Alcohol withdrawal Current Visit: Yes Status: Acute Qualifiers: Complication of substance-induced condition: uncomplicated Qualified Code(s): F10.230 - Alcohol dependence with withdrawal, uncomplicated Base Code: F10.239 - ALCOHOL DEPENDENCE WITH WITHDRAWAL, UNSPECIFIED Priority: High Comment: - Ativan per CIWA score. - CIWA 4 this AM - Last ativan dose 12AM this morning. - replace B1, folate, multivitamin per home meds. (3) Full code status Current Visit: No Status: Acute Base Code: Z78.9 - OTHER SPECIFIED HEALTH STATUS Comment: -Pt. is a full code - Disposition home today
== END 2019-11-03 11:55 | disposition home or self-care (01) ==
LOC: ER 12:09 → MEDSURG 14:01
PROVIDERS: ADMIT Internal Medicine; ATTEND Internal Medicine
DX: F10.230 Alcohol dependence with withdrawal, uncomplicated (principal); R00.0 Tachycardia, unspecified; K76.9 Liver disease, unspecified; I10 Essential (primary) hypertension; F17.210 Nicotine dependence, cigarettes, uncomplicated
CPT/HCPCS: 80048; 80053; 80320; 83690; 83735; 84425; 85025; 93005; 93010; 96361; 96374; 96375; 99220; 99285; J3411; J7030